=== PATIENT | male | born 1955 | race Caucasian/White ===

== ENCOUNTER 2025-04-12 10:19 | Emergency (ER) | payer MEDICARE, SELFPAY ==
[2025-04-12 10:20] VITALS: BP 136/88; PULSE 72; RESP 18; TEMP 36.7; O2SAT 92; BMI 25.8
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
[2025-04-12] MEDS: fentaNYL CIT INJ 50 mCg/ML AMP 2ML IVP (10:33)
[2025-04-12 10:38] VITALS: BP 136/88; PULSE 69; RESP 14; TEMP 36.4; O2SAT 93
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
--- NOTE | 2025-04-12 10:40 | EKG_ITS ---
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
[2025-04-12] MEDS: MORPHINE SULF INJ 4 MG/ML VIAL IVP ×2 (11:00→13:16)
[2025-04-12 11:18] LABS: Basophils # (Auto) 0.1 Thou/mm3 (0.0-0.2); Basophils % (Auto) 1 % (0-2.5); Eosinophils # (Auto) 0.3 Thou/mm3 (0.0-0.5); Eosinophils % (Auto) 3 % (0-10); Hematocrit 46.2 % (41.0-53.0); Hemoglobin 15.5 g/dL (13.5-16.0); Immature Granulocytes Auto 0.07 Thou/mm3 (0.00-0.00); Lymphocytes # (Auto) 1.3 Thou/mm3 (1.0-4.8); Lymphocytes % (Auto) 15 % (10-50); Mean Corpuscular HGB Conc 33.5 g/dl (31.0-37.0); Mean Corpuscular Hemoglobin 31.3 pg (25.0-35.0); Mean Corpuscular Volume 93 fL (80-100); Monocytes # (Auto) 0.8 Thou/mm3 (0.0-0.8); Monocytes % (Auto) 9 % (0-12); Neutrophils # (Auto) 6.7 Thou/mm3 (1.8-7.7); Neutrophils % (Auto) 72 % (37-80); Nucleated Red Blood Cell # 0.00 Thou/mm3 (0.00-0.00); Nucleated Red Blood Cell % 0 /100 WBC (0); Platelet Count 201 Thou/mm3 (140-440); RDW Standard Deviation 41.2 fL (35.1-43.9); Red Blood Count 4.96 Miln/mm3 (4.50-5.90); White Blood Count 9.3 Thou/mm3 (3.8-10.6)
[2025-04-12 11:32] LABS: INR 1.0 (0.9-1.3); Prothrombin Time 10.9 Seconds (9.0-12.2)
[2025-04-12 11:36] LABS: Alanine Aminotransferase 12 U/L (10-49); Albumin, Serum 4.7 gm/dL (3.4-4.8); Albumin/Globulin Ratio 2.0 (1.2-2.2); Alkaline Phosphatase 50 U/L (46-116); Anion Gap 10 (7-16); Aspartate Amino Transferase 19 U/L (0-34); BUN/Creatinine Ratio 15 Ratio (12-20); Bilirubin,Total 0.6 mg/dL (0.3-1.2); Blood Urea Nitrogen 28 mg/dL (9-23); Calcium 10.3 mg/dL (8.3-10.6); Calcium (Corrected) 10.3 mg/dL (8.5-10.1); Carbon Dioxide 25.2 mMol/L (20.0-31.0); Chloride 105 mMol/L (98-107); Creatinine (Component) 1.9 mg/dL (0.6-1.3); Estimated Creatinine Clearance 34.5 mL/min (>60); Globulin 2.4 gm/dL (2.3-3.5); Glucose 120 mg/dL (74-106); Osmolality,Calculated 285 (275-295); Potassium 4.4 mMol/L (3.4-5.1); Sodium 140 mMol/L (136-145); Total Protein 7.1 gm/dL (5.7-8.2); Troponin I < 0.002 ng/mL (0.0-0.045); eGFR 37 See Note
[2025-04-12] MEDS: HYDROmorphone INJ 2 MG/ML VIAL 0.5 MG IVP ×2 (14:24→16:37)
[2025-04-12] MEDS: RINGERS LACTATED 1000 ML 1,000 ML 125 ML IV (14:42)
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
--- NOTE | 2025-04-12 16:08 | PC.NURSE ---
Elzbieta from [facility] calling with accepting info, Dr. Romero accepts pt as an er-er transfer with a nurse report number as [phone]
== END 2025-04-12 17:35 | disposition short-term general hospital (02) ==
PROVIDERS: Emergency Provider Emergency Medicine
DX: S22.5XXA Flail chest, initial encounter for closed fracture (principal); S27.1XXA Traumatic hemothorax, initial encounter; S27.322A Contusion of lung, bilateral, initial encounter; I71.21 Aneurysm of the ascending aorta, without rupture; N20.0 Calculus of kidney; I10 Essential (primary) hypertension; N28.1 Cyst of kidney, acquired; G89.29 Other chronic pain; S09.90XA Unspecified injury of head, initial encounter; S19.9XXA Unspecified injury of neck, initial encounter; Z28.21 Immunization not carried out because of patient refusal; V86.55XA Driver of 3- or 4- wheeled all-terrain vehicle (ATV) injured in nontraffic accident, initial encounter; Y93.I9 Activity, other involving external motion; Y92.828 Other wilderness area as the place of occurrence of the external cause
CPT/HCPCS: 36415; 70450; 71045; 71260; 72125; 72128; 72131; 72170; 74177; 80053; 80307; 81001; 84484; 85025; 85610; 93005; 96374; 96375; 96376; 99284; A4649; J1171; J2270; J3010; J7120; Q9967